=== PATIENT | male | born 1940 | race African-American/Black ===

== ENCOUNTER → 2019-05-01 06:30 | Outpatient (CLI) | payer MEDICARE, OTHER, SELFPAY ==
--- NOTE | 2019-05-02 16:11 | STRESSREP ---
Stress Test Report Date: 05/01/2019 Procedure: Pharmacologic stress nuclear imaging study Indications: Atrial flutter Consent: Per the patient Procedure: The patient underwent pharmacologic (Regadenoson) evaluation with a peak heart rate of 80 beats per minute (57 %predicted maximal heart rate) and a peak blood pressure of 168/70 mmHg. The baseline ECG demonstrated normal sinus rhythm, no significant ST-T changes. EKG during lexiscan infusion revealed no significant ischemic change. EKG post infusion revealed no significant ischemic changes [There were no cardiac dysrhythmias pretest, during pharmacologic infusion, or recovery]. [There was no complaint of chest discomfort during pharmacologic infusion or recovery]. The examination was discontinued secondary to completion of protocol. Impression: 1. Lexiscan stress test test is negative for Lexiscan infusion induced EKG changes of ischemia. 2. Lexiscan stress test test is negative for Lexiscan infusion induced chest pain. 3. Results of the nuclear portion of the test is as below Myocardial perfusion imaging study: Technique: The patient was injected with 11.3 millicuries of technetium 99m Cardiolite and subsequently rest SPECT Cardiolite nuclear imaging was obtained in the horizontal long, vertical long, and short axis views. The patient underwent pharmacologic (Regadenoson) evaluation. Please see above for details. The patient was injected with 28 millicuries of technetium 99m Cardiolite and subsequently stress SPECT Cardiolite nuclear imaging was obtained in the horizontal long, vertical long, and short axis views. A gated Cardiolite study at peak stress was obtained. Interpretation: Rest and stress SPECT Cardiolite nuclear imaging status post realignment, normalization, and attenuation correction demonstrate increased radioisotope uptake on the rest and stress images prior to attenuation correction which improves with attenuation correction suggestive of diaphragmatic attenuation artifact. There is no evidence of significant ischemia or infarction. Gated images reveal no significant regional wall motion abnormalities. The reported LVEF is 60 %. Impression: 1. There is no evidence of significant ischemia or infarction. 2. Estimated ejection fraction is 60%. This note was generated with Xcedexation software. It may contain incorrect words, spelling, and punctuation that were not noted in checking the note before signing.
== END ==
PROVIDERS: Family Provider Surgery Vascular Surgery; PCP Surgery Vascular Surgery; Referring Provider Nurse Practitioner Primary Care; Visit Provider Nurse Practitioner Primary Care
DX: I48.3 Typical atrial flutter (principal); I73.9 Peripheral vascular disease, unspecified; R06.02 Shortness of breath; Z98.61 Coronary angioplasty status
CPT/HCPCS: 78452; 93017; A9500; A4216; J2785

== ENCOUNTER 2019-05-05 21:19 | Emergency (ER) | payer MEDICARE, OTHER, SELFPAY ==
[2019-05-02 09:40] VITALS: BMI 25.8
[2019-05-05 21:26] VITALS: BP 151/81; PULSE 84; RESP 17; TEMP 36.8; O2SAT 95; BMI 21.8
--- NOTE | 2019-05-05 21:33 | EKG12_ITS ---
Test Reason : Blood Pressure : / mmHG Vent. Rate : 078 BPM Atrial Rate : 078 BPM P-R Int : 174 ms QRS Dur : 118 ms QT Int : 372 ms P-R-T Axes : -18 -39 058 degrees QTc Int : 424 ms Normal sinus rhythm Left axis deviation Inferior infarct , age undetermined Abnormal ECG Confirmed by JAYJAY HAUSER, MARSHA ([id number]), market editor BALBIR HUNG ([id number]) on 05/09/2019 1:39:21 PM Referred By: Jannie Yañez Confirmed By:MARSHA RO MD
[2019-05-05 21:39] VITALS: BP 125/70; BP 136/69; BP 145/67; PULSE 82; PULSE 84
--- NOTE | 2019-05-05 21:39 | ED.VIS.GEN ---
History of Present Illness Chief Complaint: Dizziness Detail of Chief Complaint: Dizziness is defined as lightheadedness Informant: Patient, Family, Significant Other Onset: Today Context: Sudden Onset Timing: Intermittent Quality: Lightheaded Location: Home Current Severity: - - Resolved Maximum Severity: Moderate Worsened by: Upright position Relieved by: Nothing Associated Symptoms: Generalized malaise Narrative: Is an elderly male who was eating dinner with family. He estuardo from the dinner table to use the restroom. He states he did not feel.. He reports lightheadedness started before he used the restroom. He states he did not strain to have a bowel movement. He did not note black or maroon stool. He denied vertiginous symptoms. He denied ocular, visual or auditory symptoms. He specifically denied diplopia. He denies trouble with speech or swallowing. He denied paresthesia, anesthesia motor weakness. He denied chest discomfort. Presently has no symptoms Prior similar symptoms: No Recent Illness/Hospitalization: No - Past Medical History (1) Atherosclerosis of lower extremity with gangrene Status: Acute (2) Coronary artery disease Status: Acute (3) Gangrene of toe of right foot Status: Acute Past Medical History - Allergies and Home Meds Allergies/Adverse Reactions: Allergies naproxen [From Aleve] Allergy (Verified 05/05/19 21:32) Angioedema Primary Care Physician: Thomas Kelley MD [Primary Care Provider] - Prior records reviewed: Yes Surgical History: - - Stents x4 Lives: Spouse/ Significant Other Smoking Status: Never smoker Alcohol: None Drugs: None Review of Systems General: Reports: Malaise. Denies: Chills, Fever, Subjective, Sweats, Weight loss, - Eyes: Denies: Visual changes - bilaterally, Blurred Vision - bilaterally, Diplopia ENT: Reports: Bilateral ear pain. Denies: Rhinorrhea, Sore throat Cardiovascular: Denies: Chest pain, Palpitations Respiratory: Denies: Dyspnea, Cough, Dyspnea on exertion Gastrointestinal: Denies: Abdominal pain, Nausea, Vomiting, Diarrhea, Melena, Hematochezia Genitourinary: Denies: Dysuria, Hematuria, Frequency Musculoskeletal: Denies: Myalgias, Arthralgias, Neck pain, Back pain, Swelling, Extremity Pain Skin: Denies: Rash, Wounds Neurological: Denies: Headache, Weakness, Numbness Hematologic: Denies: Easy bruising, Easy bleeding Physical Exam Vital Signs/Narrative: Vital Signs Temp Pulse Resp BP Pulse Ox 05/05/19 21:26 98.3 F 84 17 151/81 H 95 Inital Vital Signs reviewed: Yes General: Well nourished, Well developed, No Acute Distress Head: Normocephalic, Atraumatic Eyes: Perrl, EOMI ENT: Moist mucous membranes, No rhinorrhea Neck: Supple, Nontender Cardiovascular: Regular rate, Regular rhythm, No murmurs, Normal S1, Normal S2 Respiratory: No distress, CTA bilaterally, Chest nontender Abdomen: Soft, Nontender, Nondistended, Normal bowel sounds, No masses Back: Nontender, Normal Inspection Extremities: Nontender, No edema, - - And has gangrene toes right foot. He has no palpable pulses. He does report pain. Skin: Normal color, No rash. Negative for: Cyanosis, Diaphoresis, Jaundice Neurological: Alert, Oriented x3, Cranial nerves II-XII grossly intact, Normal Strength, Normal Sensation, Normal DTR, - - Romberg with eyes open and closes normal. Cerebellar testing is normal. Psychological: Normal affect, Normal Mood Diagnostic/Tx/Re-eval Laboratory Results 05/05/19 21:46 WBC 10.1 RBC 3.33 L Hgb 11.2 L Hct 33.6 L MCV 100.9 H MCH 33.6 H MCHC 33.3 RDW Std Deviation 49.4 H RDW Coeff of John 13.3 Plt Count 211 MPV 8.9 Patient has mild macrocytic anemia. Family states he has a history of anemia. - EKG Initial EKG Interpretation: Sinus Rhythm - Sinus rhythm rate of 78. MA interval 174 ms. QRS duration 118 ms which is prolonged. QT T duration is 372 ms. [place] to left. 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 - Medical Decision Making KG was obtained per nurse protocol. EKG was unremarkable for ischemic changes. Orthostatic vital signs were normal. CBC was obtained to assess for anemia. Orthostatic vital signs normal. H&H unchanged. Since patient has pain secondary to peripheral artery disease and inhibits/causes sleeping problems will prescribe opiate analgesia to be taken at night for pain. ED Disposition - Plan for ED Patient: Disposition: Home or Assisted Living Diagnosis: Episodic lightheadedness, Chronic anemia, Peripheral arterial disease Instructions: DIZZINESS, Unk Cause Prescriptions: Hydrocodone Bitart/Apap 5-325 [[place] 5MG-325MG] 1 tab PO Q6H PRN PRN 3 Days #10 tab PRN Reason: Pain Prescription Printed Referrals: Thomas Kelley MD [Primary Care Provider] - Keep Toby appointment
[2019-05-05 21:58] LABS: Hematocrit 33.6 % (40-54); Hemoglobin 11.2 g/dL (13.0-16.5); Mean Corp Hgb Conc 33.3 g/dL (32-36); Mean Corpuscular Hgb 33.6 pg (27.0-32.0); Mean Corpuscular Volume 100.9 fL (80-94); Mean Platelet Vol. 8.9 fl (6.2-12.0); Platelet Count 211 K/mm3 (150-450); RBC Distribution Width CV 13.3 % (11.6-14.6); RBC Distribution Width SD 49.4 fl (35.1-43.9); Red Blood Count 3.33 M/mm3 (4.6-6.2); White Blood Count 10.1 K/mm3 (4.4-11.0)
[2019-05-05 23:08] VITALS: BP 143/79
== END 2019-05-05 23:09 | disposition home or self-care (01) ==
PROVIDERS: Emergency Provider Emergency Medicine; Family Provider Surgery Vascular Surgery; PCP Surgery Vascular Surgery
DX: R42 Dizziness and giddiness (principal); D64.9 Anemia, unspecified; I70.269 Atherosclerosis of native arteries of extremities with gangrene, unspecified extremity; H92.03 Otalgia, bilateral; I25.10 Atherosclerotic heart disease of native coronary artery without angina pectoris; Z95.5 Presence of coronary angioplasty implant and graft
CPT/HCPCS: 85027; 93005; 99283

== ENCOUNTER → 2019-05-09 10:48 | Outpatient (CLI) | payer MEDICARE, OTHER, SELFPAY ==
[2019-05-09 10:48] VITALS: BMI 21.8
[2019-05-09 11:58] LABS: Anion Gap 3 (5-15); BUN 17 mg/dL (7-18); BUN/Creat Ratio 16.2 RATIO (10-20); Calcium,Total 9.5 mg/dL (8.5-10.1); Chloride 105 mmol/L (98-107); Creatinine, Serum 1.05 mg/dL (0.70-1.30); EST Glomerular Filtration Rate 72 mL/min (>60); Est Glom Filt Rate - Afr Amer 87 mL/min (>60); Glucose 98 mg/dL (74-106); Potassium 4.1 mmol/L (3.5-5.1); Sodium Level 138 mmol/L (136-145)
--- NOTE | 2019-05-09 12:37 | CON.PCM_ITS ---
Problem List (1) Gangrene of toe of right foot Status: Acute Reason for Consult: gangrene History of Present Illness: The patient is a 78 year old M with severe PAD, presented to wound care with several months of R toe gangrene, pain, redness, swelling. Lives in [facility], [facility] for a living. No fever, no n/v/d. R 1st toe with dry gangrene. R 3rd toe with inflammation. No pain at rest. Came to wound center, xray done, toe with foul odor and concern for infection. Cxs sent, started on flagyl. Toe doing better in terms of odor. Full ROS performed and neg except as noted above. - Medical History Surgical History: reviewed includes PAD Allergies/Adverse Reactions: Allergies naproxen [From Aleve] Allergy (Verified 05/05/19 21:32) Angioedema Home Medications: Ambulatory Orders Medication Instructions Recorded Hydrocodone Bitart/Apap 5-325 1 tab PO Q6H PRN PRN 3 Days #10 tab 05/05/19 [[place] 5MG-325MG] - Social History Tobacco Use: non-smoker Alcohol Use: occasionally Drug Use: marijuana Body Mass Index (BMI) 21.8 Laboratory Tests Past 24 Hrs 05/09/19 10:55 Sodium 138 Potassium 4.1 Chloride 105 Carbon Dioxide 30.0 Anion Gap 3 L BUN 17 Creatinine 1.05 Est GFR (MDRD) Af Amer 87 Est GFR (MDRD) Non-Af 72 BUN/Creatinine Ratio 16.2 Glucose 98 Calcium 9.5 - Other Studies Radiology: [] reviewed Other Studies: [] Route of nutrition/ use of supplements: [] Nutritional Intake: [] IV Site: [] Phipps Catheter: [] - Physical Exam General: Alert, Oriented x3, Cooperative, No apparent distress HEENT: Atraumatic, PERRLA, EOMI Neck: Supple, No Nodes Lungs: Clear to auscultation, Normal air movement Cardiovascular: Regular rate, Regular Rhythm Abdomen: Soft, Non Tender, Non-Distended Extremities: No edema, Diminished Peripheral Pulses Skin: - - R 1st toe gangrene, 3rd toe swelling, redness. Musculoskeletal: No Tenderness to Palpation of Joints or Extremities Neurological: Cranial nerves II-XII grossly intact - Assessment/Plan Antibiotics: [] Assessment/Plan: [] R 3rd toe infection with R 1st toe dry gangrene - reviewed cxs, imaging. Will write for 2 week course of doxy/cipro/flagyl. Counseled re:need to avoid etoh while on flagyl. Check bmp now. Wrote rx. Discussed with Lucy Guadalupe. Return to clinic as needed, thank you for this referral.
== END ==
PROVIDERS: Family Provider Surgery Vascular Surgery; PCP Surgery Vascular Surgery; Referring Provider Internal Medicine Infectious Disease; Visit Provider Internal Medicine Infectious Disease
DX: I96 Gangrene, not elsewhere classified (principal)
CPT/HCPCS: 36415; 80048

== ENCOUNTER 2019-05-14 10:30 | Outpatient (RCR) | payer MEDICARE, OTHER, SELFPAY ==
[2019-05-02 09:40] VITALS: BP 137/65; PULSE 69; RESP 16; TEMP 37; BMI 25.8
--- NOTE | 2019-05-02 11:24 | RAD_ITS ---
STUDY: X-RAY - RIGHT FOOT CLINICAL: Male, 78 years old. Right foot pain, third toe ulcer, suspect osteomyelitis TECHNIQUE: 3 view(s) of the foot. COMPARISON: None. FINDINGS: There is a plantar calcaneal spur. Normal visualized subtalar, talonavicular, calcaneocuboid, tarsal and tarsometatarsal articulations. Normal metatarsi. There is degenerative arthrosis of the metatarsophalangeal joint of the hallux . Normal tibial and fibular sesamoid bones. Normal interphalangeal joint of the great toe. Normal phalanges of the great toe. Normal second through fifth metatarsophalangeal joints. Normal interphalangeal joints and phalanges of the lesser toes. There is loss of soft tissue density overlying the first distal phalanx with no fat plane/soft tissue adjacent to the tuft. There is soft tissue swelling of the third digit but no obvious bony destruction. Vascular calcifications are present. RAD/Foot min 3 Views IMPRESSION: 1. Suspected soft tissue erosion/ulcer of the distal first toe. No obvious aixa bony destruction. Recommend correlation with MRI or bone scan, if clinically appropriate, for evaluation of osteomyelitis. 2. Third toe soft tissue swelling without obvious bony destruction. Electronically Signed: Mark Deluna MD ([place]) at 17:15 EDT , Service support ,
--- NOTE | 2019-05-02 11:34 | RAD_ITS ---
STUDY: X-RAY RIGHT FOOT, FIRST and third TOE REASON FOR EXAM: Male, 78 years old. Ulcers of the first and third toes TECHNIQUE: 3 view(s) of the toe were obtained. COMPARISON: None. FINDINGS: Normal visualized metatarsus. Normal metatarsophalangeal (M.T.P) joint. Normal interphalangeal joints. There is loss of soft tissue density overlying the first distal phalanx with no fat plane/soft tissue adjacent to the tuft. There is soft tissue swelling of the third digit but no obvious bony destruction. RAD/Toe(s) Min 2 Views IMPRESSION: 1. Suspected soft tissue erosion/ulcer of the distal first toe (phalanx may be exposed). No obvious aixa bony destruction. Recommend correlation with MRI or bone scan, if clinically appropriate, for evaluation of osteomyelitis. 2. Third toe soft tissue swelling without obvious bony destruction. Electronically Signed: Mark Deluna MD ([place]) at 17:17 EDT , Service support ,
--- NOTE | 2019-05-02 11:54 | HP.PCM_ITS ---
(1) Gangrene of toe of right foot Status: Acute Current Visit: Yes Code(s): I96 - Gangrene, not elsewhere classified (2) Nonhealing nonsurgical wound Status: Acute Current Visit: Yes Code(s): T14.8XXA - Other injury of unspecified body region, initial encounter (3) Atherosclerosis of lower extremity with gangrene Status: Acute Current Visit: Yes Code(s): I70.269 - Atherosclerosis of [place] arteries of extremities with gangrene, unspecified extremity (4) Coronary artery disease Status: Acute Current Visit: Yes Code(s): I25.10 - Atherosclerotic heart disease of [place] coronary artery without angina pectoris History of Present Illness Date of Service: 05/02/19 Chief Complaint: Follow-up on some black toes History of Wound: 78-year-old black male from the [facility] noticed a couple weeks ago that his toes were discoloring has history of coronary artery disease and had an ME with 4 stents is on Eliquis for his uncontrolled A. fib hypertension and coronary artery disease he is also had an attempted stent to the right leg unsuccessful by a vascular surgeon on April 16 he does have a follow-up appointment with him next week. Patient had vascular studies done with the vascular surgeon no results to us yet we will attempt to get copies. Patient states he has good feeling in his legs and feet and can move all toes. Relatives that are nurses felt that the vascular surgeon would only be interested in his reasons why he is doing this but not with the wounds on his feet and that is how they got referred to the wound center. Past Medical History Past Medical History: Gangrene to the right great toe tip. Open wound to the third toe dorsal to the bone. Pretension, CAD, myocardial infarct borderline diabetes. Blood thinners Eliquis Surgical History: - - Stents x4 Lives: Spouse/ Significant Other Smoking Status: Former smoker Review of Systems Constitutional: Denies: Chills, Fever Eyes: Denies: Blurred vision, Drainage, Pain HEENT: Denies: Difficulty Hearing, Difficulty Swallowing, Sore Throat, Visual Changes Cardiovascular: Denies: Chest Pain, Palpitations, Syncope Respiratory: Denies: Cough, Shortness of Breath Gastrointestinal: Denies: Abdominal Pain, Nausea, Vomiting Genitourinary: Denies: Dysuria, Frequency Musculoskeletal: Denies: Joint Pain, Muscle pain Skin: Denies: Jaundice, Rash Neurological: Denies: Balance problems, Change in Speech, Difficulty swallowing, Focal weakness Psychiatric: Denies: Anxiety, Depression Endocrine: Denies: Change in Body Habitus Hematologic/ Lymphatic: Denies: Adenopathy - Physical Exam Vital Signs Temp Pulse Resp BP 98.6 F 69 16 137/65 H 05/02/19 09:40 05/02/19 09:40 05/02/19 09:40 05/02/19 09:40 General: Oriented x3, Cooperative, Well developed HEENT: Atraumatic, PERRLA Oral: Moist Mucosa Neck: Supple, No JVD Lungs: Clear to auscultation, Normal air movement Cardiovascular: Regular rate, Regular Rhythm Abdomen: Bowel Sounds Present, Soft, Non Tender, No Hepato-splenomegaly Extremities: No clubbing, No edema Skin: Ulcer/ Wound - Black tiptoed to the right great toe and open wound with slough on the third dorsal toe Wound Measurements and Assessment WC - Nurse 1 - General Ulcer Measurement Start: 05/02/19 09:40 Freq: Status: Active Protocol: Activity Type Activity Date Activity User E-Sign Co-Sign Detail Recorded Client Recorded Date Recorded By Document 05/02/19 09:40 [facility] [id number] 05/02/19 09:59 [facility] 05/02/19 09:40 Wound Center Nurse 1 [Ulcer Assessment] #2- R 3RD TOE -Combined with other wound No -Current Size (cm) - Length 1.1 -Current Size (cm) - Width 1.7 -Current Size (cm) - Depth 0.1 -Total Square Cm 1.87 -Date of Last Picture (Recall this 05/02/19 field) -Photo Taken Yes -Epithelialization None Present -Tunneling No -Undermining/Tunneling No -Circular Undermining No -Exudate Amt None Present -Wound Margin Distinct, Outline Attached -Granulation Amt None Present (0 %) -Slough/Fibrin Yes -Necrosis Amt Large (67-100%) -Necrotic Tissue Type Eschar -Texture (Amie-wound Skin Appearance) Assessed -Moisture (Amie-wound Skin Appearance Assessed ) -Color (Amie-wound Skin Appearance) Assessed -Temperature (Amie-wound Skin No Abnormality Appearance) (Pt Warm) -Tenderness on Palpation (Amie-wound No Skin Appearance) -Ulcer Cleansing SOAP AND WATER -Foul Odor after Cleansing No -Anesthetic Used 4% Lidocaine Solution #1- R GREAT TOE -Combined with other wound No -Current Size (cm) - Length 6.2 -Current Size (cm) - Width 3.5 -Current Size (cm) - Depth 0.1 -Total Square Cm 21.70 -Date of Last Picture (Recall this 05/02/19 field) -Photo Taken Yes -Epithelialization None Present -Tunneling No -Undermining/Tunneling No -Circular Undermining No -Exudate Amt Small -Exudate Type Serous -Wound Margin Distinct, Outline Attached -Granulation Amt None Present (0 %) -Slough/Fibrin Yes -Necrosis Amt Large (67-100%) -Necrotic Tissue Type Eschar -Texture (Amie-wound Skin Appearance) Assessed -Moisture (Amie-wound Skin Appearance Assessed ) -Color (Amie-wound Skin Appearance) Assessed -Temperature (Amie-wound Skin No Abnormality Appearance) (Pt Warm) -Tenderness on Palpation (Amie-wound Yes Skin Appearance) -Ulcer Cleansing SOAP AND WATER -Foul Odor after Cleansing No -Anesthetic Used 4% Lidocaine Solution [Edema Assessment] -Lower Limb Edema Present Yes -Right Calf (cm) 32.4 -Right Ankle (cm) 20.9 -Left Calf (cm) 31.8 -Left Ankle (cm) 21 WC - Nurse 2 - General Ulcer CM Notes Start: 05/02/19 09:40 Freq: Status: Active Protocol: Activity Type Activity Date Activity User E-Sign Co-Sign Detail Recorded Client Recorded Date Recorded By Document 05/02/19 10:23 MW [id number] 05/02/19 10:49 MW 05/02/19 10:23 Wound Center Nurse 2 [Procedure/Treatment] #2- R 3RD TOE -Time 10:24 -Correct Patient Yes -Correct Side, Site, Position Yes -Correct Procedure Yes -Procedure Performed Yes -Type of Procedure Debridement -Clinical Debridement Subcutaneous -Post Debridement Size (cm) - Length 1.0 -Post Debridement Size (cm) - Width 1.0 -Post Debridement Size (cm) - Depth 0.3 -Total Square Cm 1.00 -Wound/Ulcer Outcome Not Healed -Ulcer Cleansing Rinsed/ Irrigated with Saline -Foul Odor after Cleansing No -Bioengineered Tissue No -Bleeding Controlled with Pressure -Offloading No -Treatment Response Procedure Tolerated Well #1- R GREAT TOE -Time 10:25 -Correct Patient Yes -Correct Side, Site, Position Yes -Correct Procedure Yes -Procedure Performed Yes -Type of Procedure Debridement -Clinical Debridement Subcutaneous -Post Debridement Size (cm) - Length 7.0 -Post Debridement Size (cm) - Width 4.0 -Post Debridement Size (cm) - Depth 0.1 -Total Square Cm 28.00 -Wound/Ulcer Outcome Not Healed -Ulcer Cleansing Rinsed/ Irrigated with Saline -Foul Odor after Cleansing No -Bioengineered Tissue No -Bleeding Controlled with Pressure -Offloading No -Treatment Response Procedure Tolerated Well [See Physician Procedure note for Specifics] Pain Scale: 0-10 Numeric [Pain] -Is Patient Pain Free? Yes Musculoskeletal: No Tenderness to Palpation of Joints or Extremities Lymphatic: No Cervical, Supraclavicular, or Inguinal Adenopathy Neurological: Cranial nerves II-XII grossly intact, Neuro grossly intact Psych/Mental Status: Normal Affect, Appropriate Debridement Note Post-Debridement Measurements/Treatment WC - Nurse 2 - General Ulcer CM Notes Start: 05/02/19 09:40 Freq: Status: Active Protocol: Activity Type Activity Date Activity User E-Sign Co-Sign Detail Recorded Client Recorded Date Recorded By Document 05/02/19 10:23 MW [id number] 05/02/19 10:49 MW 05/02/19 10:23 Wound Center Nurse 2 #2- R 3RD TOE -Time 10:24 -Correct Patient Yes -Correct Side, Site, Position Yes -Correct Procedure Yes -Procedure Performed Yes -Type of Procedure Debridement -Clinical Debridement Subcutaneous -Post Debridement Size (cm) - Length 1.0 -Post Debridement Size (cm) - Width 1.0 -Post Debridement Size (cm) - Depth 0.3 -Total Square Cm 1.00 -Wound/Ulcer Outcome Not Healed -Ulcer Cleansing Rinsed/ Irrigated with Saline -Foul Odor after Cleansing No -Bioengineered Tissue No -Bleeding Controlled with Pressure -Offloading No -Treatment Response Procedure Tolerated Well #1- R GREAT TOE -Time 10:25 -Correct Patient Yes -Correct Side, Site, Position Yes -Correct Procedure Yes -Procedure Performed Yes -Type of Procedure Debridement -Clinical Debridement Subcutaneous -Post Debridement Size (cm) - Length 7.0 -Post Debridement Size (cm) - Width 4.0 -Post Debridement Size (cm) - Depth 0.1 -Total Square Cm 28.00 -Wound/Ulcer Outcome Not Healed -Ulcer Cleansing Rinsed/ Irrigated with Saline -Foul Odor after Cleansing No -Bioengineered Tissue No -Bleeding Controlled with Pressure -Offloading No -Treatment Response Procedure Tolerated Well Pain Scale: 0-10 Numeric Is Patient Pain Free? Yes Wound debrided: Right great toe Type of Debridement: Excisional debridement Anesthesia Used: 5% Lidocaine Gel Depth: to bone Percentage of wound debrided: 100 Instrument Used: 7mm curette, - - Nippers and scissors Tissue Removed: Devitalized tissue necrotic tissue extremely odiferous Severity: Necrosis of Muscle - Necrotic skin smells Amount of bleeding with debridement: Mild Bleeding Controlled with: Compression and gauze Patient tolerated procedure well - Additional Wound Wound debrided: Right third toe dorsal side Laterality: Right Type of Debridement: Excisional debridement Anesthesia Used: 5% Lidocaine Gel Depth: Down to and including healthy tissue, in the subcutaneous layer, to bone Percentage of wound debrided: 100 Instrument Used: 7mm curette Tissue Removed: Necrotic tissue devitalized tissue Severity: Fat Layer Exposed Amount of bleeding with debridement: None Bleeding Controlled with: Pressure Patient tolerated procedure: Patient tolerated procedure well Assessment/Plan Aerobic and anaerobic cultures of the third toe and great toe taken Foot x-ray and toes x-ray ordered Active Problems Gangrene of toe of right foot (Acute) Nonhealing nonsurgical wound (Acute) Atherosclerosis of lower extremity with gangrene (Acute) Coronary artery disease (Acute) Assessment: Gangrene tip of the right great toe 50%. Right third toe open nonhealing wound infected. CAD and atherosclerosis with gangrene. Long-term blood thinner use Plan: Wash leg with Hibiclens or antibacterial soap such as Dial. Apply povidone iodine to the right great toe: It air dry and cover. Right third toe Santyl to the open wound cover with Adaptic and gauze. Follow-up in 1 week. We will contact them with results of testing. Keep appointment with vascular surgeon will continue to attempt to get copies of vascular studies.
[2019-05-09 09:52] VITALS: BP 156/73; PULSE 76; RESP 20; TEMP 37; BMI 25.8
--- NOTE | 2019-05-09 12:38 | PCM.WC.PN ---
(1) Gangrene of toe of right foot Status: Acute Current Visit: No Code(s): I96 - Gangrene, not elsewhere classified (2) Nonhealing nonsurgical wound Status: Acute Current Visit: No Code(s): T14.8XXA - Other injury of unspecified body region, initial encounter (3) Atherosclerosis of lower extremity with gangrene Status: Acute Current Visit: No Code(s): I70.269 - Atherosclerosis of [place] arteries of extremities with gangrene, unspecified extremity (4) Coronary artery disease Status: Acute Current Visit: No Code(s): I25.10 - Atherosclerotic heart disease of [place] coronary artery without angina pectoris Type of Wound Date of Service: 05/09/19 Chief Complaint: Follow-up on some black toes History of Wound: 78-year-old black male from the [facility] noticed a couple weeks ago that his toes were discoloring has history of coronary artery disease and had an [place] with 4 stents is on Eliquis for his uncontrolled A. fib hypertension and coronary artery disease he is also had an attempted stent to the right leg unsuccessful by a vascular surgeon on April 16 he does have a follow-up appointment with him next week. Patient had vascular studies done with the vascular surgeon no results to us yet we will attempt to get copies. Patient states he has good feeling in his legs and feet and can move all toes. Relatives that are nurses felt that the vascular surgeon would only be interested in his reasons why he is doing this but not with the wounds on his feet and that is how they got referred to the wound center. Progress of Wound: Today is the first time we have seen it since last visit and the right great toe is completely black and the right third toe dorsal side still has a hole in the top with easily now to get the slough out. Using Santyl as described and I have probed down iodine to the right great toe daily. 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 The infectious disease doctor started 2 antibiotics and started him on a higher dose of metronidazole I had him on 250 he increased it to 500. She was also seen by his vascular surgeon this past week and he basically said the surgery would would be at least 8 hours long and he is not guarantee that he be able to get through the arteries from the heart down into the legs because of his calcification issues. He suggested to leave it alone and to continue with wound care and pain management until he cannot stand it any longer amputation is the only answer in the end. 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 We discussed that it is a minimum of 6 months with this foot to get back to normal and they are not willing to wait that long. We will get things started and get antibiotics going continue with wound care until they decide to leave. They will then follow-up with their regular doctor with the wound care that we are giving and follow-up with pain management down there. Patient and are agreeable to plan. Infectious disease agrees MRI is not necessary at this point he looked at the x-rays and he thinks that oral antibiotics are okay at this point and since he is not a candidate for surgery there is not much else we can do for now. - Physical Exam Vital Signs Temp Pulse Resp BP 98.6 F 76 20 H 156/73 H 05/09/19 09:52 05/09/19 09:52 05/09/19 09:52 05/09/19 09:52 General: Oriented x3, Cooperative, Well developed HEENT: Atraumatic, PERRLA Oral: Moist Mucosa Neck: Supple, No JVD Lungs: Clear to auscultation, Normal air movement Cardiovascular: Regular rate, Regular Rhythm Abdomen: Bowel Sounds Present, Soft, Non Tender, No Hepato-splenomegaly Extremities: No clubbing, No edema Skin: Ulcer/ Wound - Blackened right great toe and open ulcer right third toe Wound Measurements and Assessment WC - Nurse 1 - General Ulcer Measurement Start: 05/02/19 09:40 Freq: Status: Active Protocol: Activity Type Activity Date Activity User E-Sign Co-Sign Detail Recorded Client Recorded Date Recorded By Document 05/09/19 09:52 AN [id number] 05/09/19 10:00 AN 05/09/19 09:52 Wound Center Nurse 1 [Ulcer Assessment] #2- R 3RD TOE -Current Size (cm) - Length 0.8 -Current Size (cm) - Width 0.4 -Current Size (cm) - Depth 0.2 -Total Square Cm 0.32 -Photo Taken No -Exudate Amt Medium -Exudate Type Yellow/Green -Wound Margin Flat & Intact -Granulation Amt None Present (0 %) -Slough/Fibrin Yes -Necrosis Amt Large (67-100%) -Necrotic Tissue Type Adherent Slough -Structure Exposed Fat Layer Exposed -Texture (Amie-wound Skin Appearance) Assessed -Moisture (Amie-wound Skin Appearance Assessed ) -Color (Amie-wound Skin Appearance) Assessed -Temperature (Amie-wound Skin No Abnormality Appearance) (Pt Warm) -Tenderness on Palpation (Amie-wound Yes Skin Appearance) -Ulcer Cleansing Rinsed/ Irrigated with Saline -Foul Odor after Cleansing No -Anesthetic Used 4% Lidocaine Solution #1- R GREAT TOE -Current Size (cm) - Length 7 -Current Size (cm) - Width 7 -Current Size (cm) - Depth 0.1 -Total Square Cm 49 -Classification - Thickness Unclassifiable (Eschar Covered ) -Exudate Amt None Present -Wound Margin Indistinct, Non -Visible -Structure Exposed N/A -Texture (Amie-wound Skin Appearance) Assessed -Moisture (Amie-wound Skin Appearance Assessed ) -Color (Amie-wound Skin Appearance) Assessed -Temperature (Amie-wound Skin No Abnormality Appearance) (Pt Warm) -Tenderness on Palpation (Amie-wound No Skin Appearance) -Ulcer Cleansing Rinsed/ Irrigated with Saline -Foul Odor after Cleansing No WC - Nurse 2 - General Ulcer CM Notes Start: 05/02/19 09:40 Freq: Status: Active Protocol: Activity Type Activity Date Activity User E-Sign Co-Sign Detail Recorded Client Recorded Date Recorded By Document 05/09/19 10:08 MW [id number] 05/09/19 10:22 MW 05/09/19 10:08 Wound Center Nurse 2 [Procedure/Treatment] #2- R 3RD TOE -Time 10:09 -Correct Patient Yes -Correct Side, Site, Position Yes -Correct Procedure Yes -Procedure Performed Yes -Type of Procedure Debridement -Clinical Debridement Subcutaneous -Post Debridement Size (cm) - Length 0.5 -Post Debridement Size (cm) - Width 0.5 -Post Debridement Size (cm) - Depth 0.3 -Total Square Cm 0.25 -Wound/Ulcer Outcome Not Healed -Ulcer Cleansing Rinsed/ Irrigated with Saline -Foul Odor after Cleansing No -Bioengineered Tissue No -Bleeding Controlled with Pressure -Offloading No -Treatment Response Procedure Tolerated Well #1- R GREAT TOE -Time 10:17 -Correct Patient Yes -Correct Side, Site, Position Yes -Correct Procedure Yes -Procedure Performed No -Post Debridement Size (cm) - Length 7.0 -Post Debridement Size (cm) - Width 3.5 -Post Debridement Size (cm) - Depth 0.1 -Total Square Cm 24.50 -Ulcer Cleansing Not Cleansed -Foul Odor after Cleansing No -Bioengineered Tissue No -Bleeding Controlled with NA -Offloading No -Treatment Response Procedure Tolerated Well [See Physician Procedure note for Specifics] Pain Scale: 0-10 Numeric [Pain] -Is Patient Pain Free? Yes Musculoskeletal: No Tenderness to Palpation of Joints or Extremities Lymphatic: No Cervical, Supraclavicular, or Inguinal Adenopathy Neurological: Cranial nerves II-XII grossly intact, Neuro grossly intact Psych/Mental Status: Normal Affect, Appropriate Debridement Note Post-Debridement Measurements/Treatment WC - Nurse 2 - General Ulcer CM Notes Start: 05/02/19 09:40 Freq: Status: Active Protocol: Activity Type Activity Date Activity User E-Sign Co-Sign Detail Recorded Client Recorded Date Recorded By Document 05/02/19 10:23 MW [id number] 05/02/19 10:49 MW Document 05/09/19 10:08 MW [id number] 05/09/19 10:22 MW 05/02/19 05/09/19 10:23 10:08 Wound Center Nurse 2 #2- R 3RD TOE -Time 10:24 10:09 -Correct Patient Yes Yes -Correct Side, Site, Position Yes Yes -Correct Procedure Yes Yes -Procedure Performed Yes Yes -Type of Procedure Debridement Debridement -Clinical Debridement Subcutaneous Subcutaneous -Post Debridement Size (cm) - Length 1.0 0.5 -Post Debridement Size (cm) - Width 1.0 0.5 -Post Debridement Size (cm) - Depth 0.3 0.3 -Total Square Cm 1.00 0.25 -Wound/Ulcer Outcome Not Healed Not Healed -Ulcer Cleansing Rinsed/ Rinsed/ Irrigated with Irrigated with Saline Saline -Foul Odor after Cleansing No No -Bioengineered Tissue No No -Bleeding Controlled with Pressure Pressure -Offloading No No -Treatment Response Procedure Procedure Tolerated Well Tolerated Well #1- R GREAT TOE -Time 10:25 10:17 -Correct Patient Yes Yes -Correct Side, Site, Position Yes Yes -Correct Procedure Yes Yes -Procedure Performed Yes No -Type of Procedure Debridement -Clinical Debridement Subcutaneous -Post Debridement Size (cm) - Length 7.0 7.0 -Post Debridement Size (cm) - Width 4.0 3.5 -Post Debridement Size (cm) - Depth 0.1 0.1 -Total Square Cm 28.00 24.50 -Wound/Ulcer Outcome Not Healed -Ulcer Cleansing Rinsed/ Not Cleansed Irrigated with Saline -Foul Odor after Cleansing No No -Bioengineered Tissue No No -Bleeding Controlled with Pressure NA -Offloading No No -Treatment Response Procedure Procedure Tolerated Well Tolerated Well Pain Scale: 0-10 Numeric Is Patient Pain Free? Yes Yes Wound debrided: Right third toe Type of Debridement: Excisional debridement Anesthesia Used: 5% Lidocaine Gel Depth: Down to and including healthy tissue, in the subcutaneous layer, to bone Percentage of wound debrided: 100 Instrument Used: 3mm curette Tissue Removed: Slough and fibrin Amount of bleeding with debridement: Mild Bleeding Controlled with: Compression and gauze Patient tolerated procedure well Assessment/Plan Clinical Impression(s) from Imaging Studies Foot X-Ray 05/02/19 11:24 IMPRESSION: 1. Suspected soft tissue erosion/ulcer of the distal first toe. No obvious aixa bony destruction. Recommend correlation with MRI or bone scan, if clinically appropriate, for evaluation of osteomyelitis. 2. Third toe soft tissue swelling without obvious bony destruction. Electronically Signed: Mark Deluna MD ([place]) at 17:15 EDT , Service support , Toe X-Ray 05/02/19 11:34 IMPRESSION: 1. Suspected soft tissue erosion/ulcer of the distal first toe (phalanx may be exposed). No obvious aixa bony destruction. Recommend correlation with MRI or bone scan, if clinically appropriate, for evaluation of osteomyelitis. 2. Third toe soft tissue swelling without obvious bony destruction. Electronically Signed: Mark Deluna MD ([place]) at 17:17 EDT , Service support , Assessment: Gangrene tip of the right great toe 50%. Right third toe open nonhealing infected. CAD and atherosclerosis with gangrene. Long-term blood thinner use. MRSA Plan: Wash leg with Hibiclens or antibacterial soap such as Dial. Apply povidone iodine to the right great toe: It air dry and cover. Right third toe Santyl to the open wound cover with Adaptic and gauze. Follow-up in 1 week. Start the ciprofloxacin 500 twice daily for 14 days. Start the doxycycline 100 mg twice daily for 14 days. Increase metronidazole to 500 mg 3 times a day for 14 days. Will up in 1 week with another provider. We will contact them with results of testing. Keep appointment with vascular surgeon will continue to attempt to get copies of vascular studies.
[2019-05-14 10:55] VITALS: BP 143/69; PULSE 72; RESP 18; TEMP 36.6; BMI 25.8
--- NOTE | 2019-05-14 12:47 | PN.PCM_ITS ---
(1) Skin ulcer of third toe of left foot with fat layer exposed Status: Chronic Current Visit: Yes Code(s): L97.522 - Non-pressure chronic ulcer of other part of left foot with fat layer exposed (2) Peripheral arterial disease Status: Chronic Current Visit: Yes Code(s): I73.9 - Peripheral vascular disease, unspecified (3) Gangrene of toe of right foot Status: Chronic Current Visit: Yes Code(s): I96 - Gangrene, not elsewhere classified Type of Wound Date of Service: 05/14/19 Chief Complaint: Follow-up on some black toes History of Wound: 78-year-old black male from the [facility] noticed a couple weeks ago that his toes were discoloring has history of coronary artery disease and had an [place] with 4 stents is on Eliquis for his uncontrolled A. fib hypertension and coronary artery disease he is also had an attempted stent to the right leg unsuccessful by a vascular surgeon on April 16 he does have a follow-up appointment with him next week. Patient had vascular studies done with the vascular surgeon no results to us yet we will attempt to get copies. Patient states he has good feeling in his legs and feet and can move all toes. Relatives that are nurses felt that the vascular surgeon would only be interested in his reasons why he is doing this but not with the wounds on his feet and that is how they got referred to the wound center. Progress of Wound: Mr. Ling is being managed for right toe ulcers with dry gangrene of his right great toe. Right third toe probes to bone and he is currently on antibiotics per ID recommendation. No new concerns at this time. They have been applying santyl to the ulcer and it appears to be improving. - Physical Exam Vital Signs Temp Pulse Resp BP 97.8 F 72 18 143/69 H 05/14/19 10:55 05/14/19 10:55 05/14/19 10:55 05/14/19 10:55 General: Alert, Oriented x3, Cooperative, No apparent distress HEENT: Atraumatic, Normocephalic Oral: Moist Mucosa Neck: Supple Lungs: Normal air movement Extremities: No cyanosis Skin: Ulcer/ Wound Wound Measurements and Assessment WC - Nurse 1 - General Ulcer Measurement Start: 05/02/19 09:40 Freq: Status: Active Protocol: Activity Type Activity Date Activity User E-Sign Co-Sign Detail Recorded Client Recorded Date Recorded By Document 05/14/19 10:55 RB [id number] 05/14/19 11:00 RB 05/14/19 10:55 Wound Center Nurse 1 [Ulcer Assessment] #2- R 3RD TOE -Combined with other wound No -Current Size (cm) - Length 0.5 -Current Size (cm) - Width 0.7 -Current Size (cm) - Depth 0.2 -Total Square Cm 0.35 -Tunneling No -Undermining/Tunneling No -Circular Undermining No -Exudate Amt Small -Exudate Type Serosanguineous -Wound Margin Distinct, Outline Attached -Granulation Amt Small (1-33%) -Granulation Quality [place] -Slough/Fibrin Yes -Necrosis Amt Medium (34-66%) -Necrotic Tissue Type Adherent Slough -Structure Exposed N/A -Texture (Amie-wound Skin Appearance) Assessed -Moisture (Amie-wound Skin Appearance Assessed ) -Color (Amie-wound Skin Appearance) Assessed -Temperature (Amie-wound Skin No Abnormality Appearance) (Pt Warm) -Tenderness on Palpation (Amie-wound No Skin Appearance) -Ulcer Cleansing Wound Cleanser -Foul Odor after Cleansing No -Anesthetic Used 4% Lidocaine Solution #1- R GREAT TOE -Combined with other wound No -Current Size (cm) - Length 7.5 -Current Size (cm) - Width 3.5 -Current Size (cm) - Depth 0.1 -Total Square Cm 26.25 -Tunneling No -Undermining/Tunneling No -Circular Undermining No -Exudate Amt None Present -Wound Margin Distinct, Outline Attached -Granulation Amt None Present (0 %) -Slough/Fibrin Yes -Necrosis Amt Large (67-100%) -Necrotic Tissue Type Eschar -Structure Exposed N/A -Texture (Amie-wound Skin Appearance) Assessed -Moisture (Amie-wound Skin Appearance Assessed,Dry/ ) Scaly -Color (Amie-wound Skin Appearance) Assessed -Temperature (Amie-wound Skin No Abnormality Appearance) (Pt Warm) -Tenderness on Palpation (Amie-wound No Skin Appearance) -Foul Odor after Cleansing No WC - Nurse 2 - General Ulcer CM Notes Start: 05/02/19 09:40 Freq: Status: Active Protocol: Activity Type Activity Date Activity User E-Sign Co-Sign Detail Recorded Client Recorded Date Recorded By Document 05/14/19 11:08 MW [id number] 05/14/19 11:11 MW 05/14/19 11:08 Wound Center Nurse 2 [Procedure/Treatment] #2- R 3RD TOE -Time 11:08 -Correct Patient Yes -Correct Side, Site, Position Yes -Correct Procedure Yes -Procedure Performed Yes -Type of Procedure Debridement -Clinical Debridement Subcutaneous -Post Debridement Size (cm) - Length 0.5 -Post Debridement Size (cm) - Width 0.7 -Post Debridement Size (cm) - Depth 0.3 -Total Square Cm 0.35 -Wound/Ulcer Outcome Not Healed -Ulcer Cleansing Rinsed/ Irrigated with Saline -Foul Odor after Cleansing No -Bioengineered Tissue No -Bleeding Controlled with Pressure -Offloading No -Treatment Response Procedure Tolerated Well #1- R GREAT TOE -Time 11:08 -Correct Patient Yes -Correct Side, Site, Position Yes -Correct Procedure Yes -Procedure Performed No -Wound/Ulcer Outcome Not Healed -Ulcer Cleansing Not Cleansed -Foul Odor after Cleansing No -Bleeding Controlled with NA -Offloading No [See Physician Procedure note for Specifics] Pain Scale: 0-10 Numeric [Pain] -Is Patient Pain Free? Yes Musculoskeletal: No Muscle Wasting Neurological: Cranial nerves II-XII grossly intact Psych/Mental Status: Normal Affect Debridement Note Post-Debridement Measurements/Treatment WC - Nurse 2 - General Ulcer CM Notes Start: 05/02/19 09:40 Freq: Status: Active Protocol: Activity Type Activity Date Activity User E-Sign Co-Sign Detail Recorded Client Recorded Date Recorded By Document 05/02/19 10:23 MW [id number] 05/02/19 10:49 MW Document 05/09/19 10:08 MW [id number] 05/09/19 10:22 MW Document 05/14/19 11:08 MW [id number] 05/14/19 11:11 MW 05/02/19 05/09/19 05/14/19 10:23 10:08 11:08 Wound Center Nurse 2 #2- R 3RD TOE -Time 10:24 10:09 11:08 -Correct Patient Yes Yes Yes -Correct Side, Site, Position Yes Yes Yes -Correct Procedure Yes Yes Yes -Procedure Performed Yes Yes Yes -Type of Procedure Debridement Debridement Debridement -Clinical Debridement Subcutaneous Subcutaneous Subcutaneous -Post Debridement Size (cm) - Length 1.0 0.5 0.5 -Post Debridement Size (cm) - Width 1.0 0.5 0.7 -Post Debridement Size (cm) - Depth 0.3 0.3 0.3 -Total Square Cm 1.00 0.25 0.35 -Wound/Ulcer Outcome Not Healed Not Healed Not Healed -Ulcer Cleansing Rinsed/ Rinsed/ Rinsed/ Irrigated with Irrigated with Irrigated with Saline Saline Saline -Foul Odor after Cleansing No No No -Bioengineered Tissue No No No -Bleeding Controlled with Pressure Pressure Pressure -Offloading No No No -Treatment Response Procedure Procedure Procedure Tolerated Well Tolerated Well Tolerated Well #1- R GREAT TOE -Time 10:25 10:17 11:08 -Correct Patient Yes Yes Yes -Correct Side, Site, Position Yes Yes Yes -Correct Procedure Yes Yes Yes -Procedure Performed Yes No No -Type of Procedure Debridement -Clinical Debridement Subcutaneous -Post Debridement Size (cm) - Length 7.0 7.0 -Post Debridement Size (cm) - Width 4.0 3.5 -Post Debridement Size (cm) - Depth 0.1 0.1 -Total Square Cm 28.00 24.50 -Wound/Ulcer Outcome Not Healed Not Healed -Ulcer Cleansing Rinsed/ Not Cleansed Not Cleansed Irrigated with Saline -Foul Odor after Cleansing No No No -Bioengineered Tissue No No -Bleeding Controlled with Pressure NA NA -Offloading No No No -Treatment Response Procedure Procedure Tolerated Well Tolerated Well Pain Scale: 0-10 Numeric Is Patient Pain Free? Yes Yes Yes Wound debrided: Right third toe Type of Debridement: Excisional debridement Anesthesia Used: 4% Lidocaine Solution Depth: Down to and including healthy tissue, in the subcutaneous layer Percentage of wound debrided: 100 Instrument Used: 3mm curette Tissue Removed: Slough and devitalized tissue Severity: Fat Layer Exposed - Probes to bone Amount of bleeding with debridement: Mild Bleeding Controlled with: Pressure Patient tolerated procedure well Assessment/Plan Clinical Impression(s) from Imaging Studies Foot X-Ray 05/02/19 11:24 IMPRESSION: 1. Suspected soft tissue erosion/ulcer of the distal first toe. No obvious aixa bony destruction. Recommend correlation with MRI or bone scan, if clinically appropriate, for evaluation of osteomyelitis. 2. Third toe soft tissue swelling without obvious bony destruction. Electronically Signed: Mark Deluna MD ([place]) at 17:15 EDT , Service support , Toe X-Ray 05/02/19 11:34 IMPRESSION: 1. Suspected soft tissue erosion/ulcer of the distal first toe (phalanx may be exposed). No obvious aixa bony destruction. Recommend correlation with MRI or bone scan, if clinically appropriate, for evaluation of osteomyelitis. 2. Third toe soft tissue swelling without obvious bony destruction. Electronically Signed: Mark Deluna MD ([place]) at 17:17 EDT , Service support , Active Problems Gangrene of toe of right foot (Chronic) Skin ulcer of third toe of left foot with fat layer exposed (Chronic) Peripheral arterial disease (Chronic) Assessment: Same as above. Plan: Debridement done as documented above. Procedure was well-tolerated. Continue Providone Iodine to right great toe and Santyl to right third toe. Continue antibiotics as prescribed by infectious disease. Increased protein intake also recommended. Possible application of epi-fix next week. His que stions were answered and he was advised to call with any further questions or concerns. Follow-up in a week. This note was generated with [employer] dictation software. It may contain incorrect words, spelling, and punctuation that were not noted in checking the note before signing.
== END 2019-05-19 23:59 ==
LOC: WC 10:30
PROVIDERS: Family Provider Surgery Vascular Surgery; PCP Surgery Vascular Surgery; Referring Provider Nurse Practitioner; Visit Provider Nurse Practitioner
DX: L97.522 Non-pressure chronic ulcer of other part of left foot with fat layer exposed (principal); T14.8XXA Other injury of unspecified body region, initial encounter; I70.269 Atherosclerosis of native arteries of extremities with gangrene, unspecified extremity; I25.10 Atherosclerotic heart disease of native coronary artery without angina pectoris; I10 Essential (primary) hypertension; I25.2 Old myocardial infarction; Z95.5 Presence of coronary angioplasty implant and graft; Z87.891 Personal history of nicotine dependence; Z79.01 Long term (current) use of anticoagulants; I48.91 Unspecified atrial fibrillation
CPT/HCPCS: 11042; 11045; 73630; 73660; 87070; 87075; 87077; 87186; 87205; 99203; G0463

== ENCOUNTER 2019-05-28 09:30 | Outpatient (RCR) | payer MEDICARE, OTHER, SELFPAY ==
[2019-05-20 01:14] VITALS: BP 143/69; PULSE 72; RESP 18; TEMP 36.6; BMI 21.8
[2019-05-22 10:32] VITALS: BP 134/64; PULSE 70; RESP 18; TEMP 36.6; BMI 21.8
--- NOTE | 2019-05-22 18:59 | PN.PCM_ITS ---
(1) Atherosclerosis of lower extremity with gangrene Status: Acute Current Visit: Yes Code(s): I70.269 - Atherosclerosis of [place] arteries of extremities with gangrene, unspecified extremity (2) Gangrene of toe of right foot Status: Chronic Current Visit: Yes Code(s): I96 - Gangrene, not elsewhere classified (3) Skin ulcer of third toe of left foot with fat layer exposed Status: Chronic Current Visit: Yes Code(s): L97.522 - Non-pressure chronic ulcer of other part of left foot with fat layer exposed (4) Peripheral arterial disease Status: Chronic Current Visit: No Code(s): I73.9 - Peripheral vascular disease, unspecified Type of Wound Date of Service: 05/22/19 Chief Complaint: Follow-up on some black toes History of Wound: 78-year-old black male from the [facility] noticed a couple weeks ago that his toes were discoloring has history of coronary artery disease and had an DC with 4 stents is on Eliquis for his uncontrolled A. fib hypertension and coronary artery disease he is also had an attempted stent to the right leg unsuccessful by a vascular surgeon on April 16 he does have a follow-up appointment with him next week. Patient had vascular studies done with the vascular surgeon no results to us yet we will attempt to get copies. Patient states he has good feeling in his legs and feet and can move all toes. Relatives that are nurses felt that the vascular surgeon would only be interested in his reasons why he is doing this but not with the wounds on his feet and that is how they got referred to the wound center. Progress of Wound: No new concerns at this time. Initial application of epi fix done today. - Physical Exam Vital Signs Temp Pulse Resp BP 97.8 F 70 18 134/64 H 05/22/19 10:32 05/22/19 10:32 05/22/19 10:32 05/22/19 10:32 General: Alert, Oriented x3, Cooperative, No apparent distress HEENT: Atraumatic, Normocephalic Oral: Moist Mucosa Neck: Supple Lungs: Normal air movement Extremities: No cyanosis Skin: Ulcer/ Wound Wound Measurements and Assessment WC - Nurse 1 - General Ulcer Measurement Start: 05/22/19 10:32 Freq: Status: Active Protocol: Activity Type Activity Date Activity User E-Sign Co-Sign Detail Recorded Client Recorded Date Recorded By Document 05/22/19 10:32 DL [id number] 05/22/19 10:42 DL 05/22/19 10:32 Wound Center Nurse 1 [Ulcer Assessment] #2- R 3RD TOE -Current Size (cm) - Length 0.5 -Current Size (cm) - Width 0.7 -Current Size (cm) - Depth 0.2 -Total Square Cm 0.35 -Photo Taken No -Exudate Amt Small -Exudate Type Serosanguineous -Wound Margin Thickened -Granulation Amt None Present (0 %) -Necrosis Amt Small (1-33%) -Necrotic Tissue Type Adherent Slough -Structure Exposed Bone -Texture (Amie-wound Skin Appearance) Localized Edema -Moisture (Amie-wound Skin Appearance Maceration ) -Color (Amie-wound Skin Appearance) Erythema -Temperature (Amie-wound Skin No Abnormality Appearance) (Pt Warm) -Tenderness on Palpation (Amie-wound No Skin Appearance) -Ulcer Cleansing Wound Cleanser -Foul Odor after Cleansing No -Anesthetic Used 5% Lidocaine Gel #1- R GREAT TOE -Current Size (cm) - Length 7 -Current Size (cm) - Width 8 -Current Size (cm) - Depth 0.1 -Total Square Cm 56 -Photo Taken No -Exudate Amt Small -Exudate Type Serosanguineous -Wound Margin Thickened -Granulation Amt None Present (0 %) -Necrosis Amt Large (67-100%) -Necrotic Tissue Type Eschar -Structure Exposed N/A -Texture (Amie-wound Skin Appearance) Induration, Scarring -Moisture (Amie-wound Skin Appearance Dry/Scaly ) -Color (Amie-wound Skin Appearance) Ecchymosis, Hemosiderin Staining -Temperature (Amie-wound Skin No Abnormality Appearance) (Pt Warm) -Tenderness on Palpation (Amie-wound No Skin Appearance) -Ulcer Cleansing Wound Cleanser -Foul Odor after Cleansing No WC - Nurse 2 - General Ulcer CM Notes Start: 05/22/19 10:32 Freq: Status: Active Protocol: Activity Type Activity Date Activity User E-Sign Co-Sign Detail Recorded Client Recorded Date Recorded By Document 05/22/19 11:06 MW [id number] 05/22/19 11:15 MW 05/22/19 11:06 Wound Center Nurse 2 [Procedure/Treatment] #2- R 3RD TOE -Time 11:07 -Correct Patient Yes -Correct Side, Site, Position Yes -Correct Procedure Yes -Procedure Performed Yes -Type of Procedure Debridement -Clinical Debridement Subcutaneous -Post Debridement Size (cm) - Length 0.4 -Post Debridement Size (cm) - Width 0.5 -Post Debridement Size (cm) - Depth 0.2 -Total Square Cm 0.20 -Wound/Ulcer Outcome Not Healed -Ulcer Cleansing Rinsed/ Irrigated with Saline -Foul Odor after Cleansing No -Bioengineered Tissue Yes -Type of bioengineered Tissue EPIFIX -Expiration Date 08/20/23 -Product Lot Number [id number] -Percent Used 100 -Saline Lot Number [id number] -Bleeding Controlled with Pressure -Offloading No -Treatment Response Procedure Tolerated Well #1- R GREAT TOE -Time 11:07 -Correct Patient Yes -Correct Side, Site, Position Yes -Correct Procedure Yes -Procedure Performed No -Wound/Ulcer Outcome Not Healed -Ulcer Cleansing Rinsed/ Irrigated with Saline -Foul Odor after Cleansing No -Bioengineered Tissue No -Bleeding Controlled with Pressure -Offloading No -Treatment Response Procedure Tolerated Well [See Physician Procedure note for Specifics] Pain Scale: 0-10 Numeric [Pain] -Is Patient Pain Free? Yes Musculoskeletal: No Muscle Wasting Neurological: Cranial nerves II-XII grossly intact Psych/Mental Status: Normal Affect Debridement Note Post-Debridement Measurements/Treatment WC - Nurse 2 - General Ulcer CM Notes Start: 05/22/19 10:32 Freq: Status: Active Protocol: Activity Type Activity Date Activity User E-Sign Co-Sign Detail Recorded Client Recorded Date Recorded By Document 05/22/19 11:06 MW [id number] 05/22/19 11:15 MW 05/22/19 11:06 Wound Center Nurse 2 #2- R 3RD TOE -Time 11:07 -Correct Patient Yes -Correct Side, Site, Position Yes -Correct Procedure Yes -Procedure Performed Yes -Type of Procedure Debridement -Clinical Debridement Subcutaneous -Post Debridement Size (cm) - Length 0.4 -Post Debridement Size (cm) - Width 0.5 -Post Debridement Size (cm) - Depth 0.2 -Total Square Cm 0.20 -Wound/Ulcer Outcome Not Healed -Ulcer Cleansing Rinsed/ Irrigated with Saline -Foul Odor after Cleansing No -Bioengineered Tissue Yes -Type of bioengineered Tissue EPIFIX -Expiration Date 08/20/23 -Product Lot Number [id number] -Percent Used 100 -Saline Lot Number [id number] -Bleeding Controlled with Pressure -Offloading No -Treatment Response Procedure Tolerated Well #1- R GREAT TOE -Time 11:07 -Correct Patient Yes -Correct Side, Site, Position Yes -Correct Procedure Yes -Procedure Performed No -Wound/Ulcer Outcome Not Healed -Ulcer Cleansing Rinsed/ Irrigated with Saline -Foul Odor after Cleansing No -Bioengineered Tissue No -Bleeding Controlled with Pressure -Offloading No -Treatment Response Procedure Tolerated Well Pain Scale: 0-10 Numeric Is Patient Pain Free? Yes Wound debrided: Right third toe Type of Debridement: Excisional debridement Anesthesia Used: 4% Lidocaine Solution Depth: Down to and including healthy tissue, in the subcutaneous layer Percentage of wound debrided: 100 Instrument Used: - - 1mm Severity: Fat Layer Exposed Amount of bleeding with debridement: Mild Bleeding Controlled with: Pressure Patient tolerated procedure well Assessment/Plan Active Problems Gangrene of toe of right foot (Chronic) Atherosclerosis of lower extremity with gangrene (Acute) Skin ulcer of third toe of left foot with fat layer exposed (Chronic) Assessment: Same as above. Plan: Debridement done as documented above. Procedure was well-tolerated. Continue Providone Iodine to right great toe. No application of epi fix done today using 100% of product. Moistened with saline Adaptic touch over top. Living place for a week. Increased protein intake also recommended. His questions were answered and he was advised to call with any further questions or concerns. Follow-up in a week. This note was generated with [employer] dictation software. It may contain incorrect words, spelling, and punctuation that were not noted in checking the note before signing.
[2019-05-28 09:45] VITALS: BP 164/85; PULSE 76; RESP 16; TEMP 36.1; BMI 21.8
--- NOTE | 2019-05-28 10:36 | PN.PCM_ITS ---
(1) Atherosclerosis of lower extremity with gangrene Status: Acute Current Visit: Yes Code(s): I70.269 - Atherosclerosis of [place] arteries of extremities with gangrene, unspecified extremity (2) Gangrene of toe of right foot Status: Chronic Current Visit: Yes Code(s): I96 - Gangrene, not elsewhere classified (3) Skin ulcer of third toe of left foot with fat layer exposed Status: Chronic Current Visit: Yes Code(s): L97.522 - Non-pressure chronic ulcer of other part of left foot with fat layer exposed (4) Peripheral arterial disease Status: Chronic Current Visit: No Code(s): I73.9 - Peripheral vascular disease, unspecified Type of Wound Date of Service: 05/28/19 Chief Complaint: Follow-up on some black toes History of Wound: 78-year-old black male from the [facility] noticed a couple weeks ago that his toes were discoloring has history of coronary artery disease and had an IN with 4 stents is on Eliquis for his uncontrolled A. fib hypertension and coronary artery disease he is also had an attempted stent to the right leg unsuccessful by a vascular surgeon on April 16 he does have a follow-up appointment with him next week. Patient had vascular studies done with the vascular surgeon no results to us yet we will attempt to get copies. Patient states he has good feeling in his legs and feet and can move all toes. Relatives that are nurses felt that the vascular surgeon would only be interested in his reasons why he is doing this but not with the wounds on his feet and that is how they got referred to the wound center. Progress of Wound: No new concerns at this time. Has had 1 application of Epifix so far. - Physical Exam Vital Signs Temp Pulse Resp BP 96.9 F L 76 16 164/85 H 05/28/19 09:45 05/28/19 09:45 05/28/19 09:45 05/28/19 09:45 General: Alert, Oriented x3, Cooperative, No apparent distress HEENT: Atraumatic, Normocephalic Oral: Moist Mucosa Neck: Supple Lungs: Normal air movement Extremities: No cyanosis Skin: Ulcer/ Wound Wound Measurements and Assessment WC - Nurse 1 - General Ulcer Measurement Start: 05/22/19 10:32 Freq: Status: Active Protocol: Activity Type Activity Date Activity User E-Sign Co-Sign Detail Recorded Client Recorded Date Recorded By Document 05/28/19 09:45 [facility] [id number] 05/28/19 09:55 [facility] 05/28/19 09:45 Wound Center Nurse 1 [Ulcer Assessment] #2- R 3RD TOE -Combined with other wound No -Current Size (cm) - Length 0.9 -Current Size (cm) - Width 0.9 -Current Size (cm) - Depth 0.1 -Total Square Cm 0.81 -Photo Taken No -Epithelialization None Present -Tunneling No -Undermining/Tunneling No -Circular Undermining No -Exudate Amt Small -Exudate Type Serosanguineous -Wound Margin Flat & Intact -Granulation Amt None Present (0 %) -Slough/Fibrin Yes -Necrosis Amt Small (1-33%) -Necrotic Tissue Type Adherent Slough -Texture (Amie-wound Skin Appearance) Assessed, Scarring -Moisture (Amie-wound Skin Appearance Assessed,Not ) Assessed -Color (Amie-wound Skin Appearance) Assessed,Palor -Temperature (Amie-wound Skin No Abnormality Appearance) (Pt Warm) -Tenderness on Palpation (Amie-wound No Skin Appearance) -Ulcer Cleansing soap and water -Foul Odor after Cleansing No -Anesthetic Used 5% Lidocaine Gel #1- R GREAT TOE -Combined with other wound No -Current Size (cm) - Length 5.1 -Current Size (cm) - Width 2.9 -Current Size (cm) - Depth 0.2 -Total Square Cm 14.79 -Photo Taken No -Epithelialization None Present -Tunneling No -Undermining/Tunneling No -Circular Undermining No -Exudate Amt Small -Exudate Type Serosanguineous -Wound Margin Distinct, Outline Attached -Granulation Amt None Present (0 %) -Slough/Fibrin Yes -Necrosis Amt Large (67-100%) -Necrotic Tissue Type Eschar -Texture (Amie-wound Skin Appearance) Assessed -Moisture (Amie-wound Skin Appearance Assessed,Dry/ ) Scaly -Color (Amie-wound Skin Appearance) Assessed -Temperature (Amie-wound Skin No Abnormality Appearance) (Pt Warm) -Tenderness on Palpation (Amie-wound Yes Skin Appearance) -Ulcer Cleansing soap and water -Foul Odor after Cleansing No -Anesthetic Used 5% Lidocaine Gel WC - Nurse 2 - General Ulcer CM Notes Start: 05/22/19 10:32 Freq: Status: Active Protocol: Activity Type Activity Date Activity User E-Sign Co-Sign Detail Recorded Client Recorded Date Recorded By Document 05/28/19 10:05 MW [id number] 05/28/19 10:22 MW 05/28/19 10:05 Wound Center Nurse 2 [Procedure/Treatment] #2- R 3RD TOE -Time 10:06 -Correct Patient Yes -Correct Side, Site, Position Yes -Correct Procedure Yes -Procedure Performed Yes -Type of Procedure Debridement -Clinical Debridement Subcutaneous -Post Debridement Size (cm) - Length 0.4 -Post Debridement Size (cm) - Width 0.5 -Post Debridement Size (cm) - Depth 0.2 -Total Square Cm 0.20 -Wound/Ulcer Outcome Not Healed -Ulcer Cleansing Rinsed/ Irrigated with Saline -Foul Odor after Cleansing No -Bioengineered Tissue Yes -Type of bioengineered Tissue EPIFIX -Expiration Date 08/20/23 -Product Lot Number [id number] -Percent Used 100 -Saline Lot Number [id number] -Bleeding Controlled with Pressure -Offloading No -Treatment Response Procedure Tolerated Well #1- R GREAT TOE -Time 10:06 -Correct Patient Yes -Correct Side, Site, Position Yes -Correct Procedure Yes -Procedure Performed Yes -Type of Procedure Debridement -Clinical Debridement Subcutaneous -Post Debridement Size (cm) - Length 0.5 -Post Debridement Size (cm) - Width 2.0 -Post Debridement Size (cm) - Depth 0.2 -Total Square Cm 1.00 -Wound/Ulcer Outcome Not Healed -Ulcer Cleansing Rinsed/ Irrigated with Saline -Foul Odor after Cleansing No -Bioengineered Tissue No -Bleeding Controlled with Pressure -Offloading No -Treatment Response Procedure Tolerated Well [See Physician Procedure note for Specifics] Pain Scale: 0-10 Numeric [Pain] -Is Patient Pain Free? Yes Musculoskeletal: No Muscle Wasting Neurological: Cranial nerves II-XII grossly intact Psych/Mental Status: Normal Affect Debridement Note Post-Debridement Measurements/Treatment WC - Nurse 2 - General Ulcer CM Notes Start: 05/22/19 10:32 Freq: Status: Active Protocol: Activity Type Activity Date Activity User E-Sign Co-Sign Detail Recorded Client Recorded Date Recorded By Document 05/22/19 11:06 MW [id number] 05/22/19 11:15 MW Document 05/28/19 10:05 MW [id number] 05/28/19 10:22 MW 05/22/19 05/28/19 11:06 10:05 Wound Center Nurse 2 #2- R 3RD TOE -Time 11:07 10:06 -Correct Patient Yes Yes -Correct Side, Site, Position Yes Yes -Correct Procedure Yes Yes -Procedure Performed Yes Yes -Type of Procedure Debridement Debridement -Clinical Debridement Subcutaneous Subcutaneous -Post Debridement Size (cm) - Length 0.4 0.4 -Post Debridement Size (cm) - Width 0.5 0.5 -Post Debridement Size (cm) - Depth 0.2 0.2 -Total Square Cm 0.20 0.20 -Wound/Ulcer Outcome Not Healed Not Healed -Ulcer Cleansing Rinsed/ Rinsed/ Irrigated with Irrigated with Saline Saline -Foul Odor after Cleansing No No -Bioengineered Tissue Yes Yes -Type of bioengineered Tissue EPIFIX EPIFIX -Expiration Date 08/20/23 08/20/23 -Product Lot Number [id number] -Percent Used 100 100 -Saline Lot Number [id number] -Bleeding Controlled with Pressure Pressure -Offloading No No -Treatment Response Procedure Procedure Tolerated Well Tolerated Well #1- R GREAT TOE -Time 11:07 10:06 -Correct Patient Yes Yes -Correct Side, Site, Position Yes Yes -Correct Procedure Yes Yes -Procedure Performed No Yes -Type of Procedure Debridement -Clinical Debridement Subcutaneous -Post Debridement Size (cm) - Length 0.5 -Post Debridement Size (cm) - Width 2.0 -Post Debridement Size (cm) - Depth 0.2 -Total Square Cm 1.00 -Wound/Ulcer Outcome Not Healed Not Healed -Ulcer Cleansing Rinsed/ Rinsed/ Irrigated with Irrigated with Saline Saline -Foul Odor after Cleansing No No -Bioengineered Tissue No No -Bleeding Controlled with Pressure Pressure -Offloading No No -Treatment Response Procedure Procedure Tolerated Well Tolerated Well Pain Scale: 0-10 Numeric Is Patient Pain Free? Yes Yes Wound debrided: Right third toe Type of Debridement: Excisional debridement Anesthesia Used: 4% Lidocaine Solution Depth: Down to and including healthy tissue, in the subcutaneous layer Percentage of wound debrided: 100 Instrument Used: - - 1mm Tissue Removed: devitalized tissue Severity: Fat Layer Exposed Amount of bleeding with debridement: Mild Bleeding Controlled with: Pressure Patient tolerated procedure well - Additional Wound Wound debrided: Right great toe Type of Debridement: Excisional debridement Anesthesia Used: 4% Lidocaine Solution Depth: Down to and including healthy tissue, in the subcutaneous layer Percentage of wound debrided: 100 Instrument Used: 3mm curette Tissue Removed: Slough and devitalized tissue Severity: Fat Layer Exposed Amount of bleeding with debridement: Mild Bleeding Controlled with: Pressure Patient tolerated procedure: Patient tolerated procedure well Assessment/Plan Active Problems Gangrene of toe of right foot (Chronic) Atherosclerosis of lower extremity with gangrene (Acute) Skin ulcer of third toe of left foot with fat layer exposed (Chronic) Assessment: Same as above. Plan: Debridement done as documented above. Procedure was well-tolerated. Continue Providone Iodine to right great toe. Fibracol to the viable areas. change daily. 2nd application of epi fix done today using 100% of product. Moistened with saline Adaptic touch over top. Leave in place for 10 days. After 10 days, apply fibochol daily until healed. Increased protein intake also recommended. His questions were answered and he was advised to call with any further questions or concerns. Discharged from the wound clinic. Travelling back to the [facility]. Will be seen by his network intern over there. This note was generated with [email or web address] dictation software. It may contain incorrect words, spelling, and punctuation that were not noted in checking the note before signing.
== END 2019-06-19 23:59 ==
LOC: WC 09:30
PROVIDERS: Family Provider Surgery Vascular Surgery; PCP Surgery Vascular Surgery; Referring Provider Nurse Practitioner; Visit Provider Nurse Practitioner
DX: I70.261 Atherosclerosis of native arteries of extremities with gangrene, right leg (principal); L97.512 Non-pressure chronic ulcer of other part of right foot with fat layer exposed; I25.10 Atherosclerotic heart disease of native coronary artery without angina pectoris; I25.2 Old myocardial infarction; Z95.5 Presence of coronary angioplasty implant and graft; Z79.01 Long term (current) use of anticoagulants; I48.91 Unspecified atrial fibrillation; I10 Essential (primary) hypertension
CPT/HCPCS: 11042; 15275; Q4186

== ENCOUNTER → 2019-11-04 10:06 | Outpatient (CLI) | payer MEDICARE, OTHER, SELFPAY ==
[2019-11-04 12:26] LABS: Allen Test POS; Base Excess 0 mmol/L (-2 to +2); Bicarbonate 23.9 mmol/L (22-26); Blood Gas Specimen Type ART; O2 Delivery Device Room Air; PO2 73 mmHG (75-100); SITE L Radial; SO2 95 % (95-99); Time Given 1055; Total Carbon Dioxide 25 mmol/L; pCO2 35.1 mmHg (35-45); pH 7.44 (7.35-7.45)
--- NOTE | 2019-11-04 14:44 | PFTCOMP_ITS ---
COMPLETE PULMONARY FUNCTION TEST INTERPRETATION Brief HPI: Patient is a 79 year old Black male, currently under the care of Jannie Yañez, who presents to [facility] for complete pulmonary function tests secondary to diagnosis of preop testing. Respiratory therapist reports good effort and reproducible results. Interpretation: Forced expiration spirometry shows a mild large airways obstructive ventilatory defect with an FEV1 of 91% predicted. There is no bronchodilator response t ested. Spirograms are of good quality and plateau slowly, indicating slowly emptying areas of the lungs. The respiratory flow volume loop shows decreased expiratory flow rates at all lung volumes consistent with airway obstruction. Lung volumes by body plethysmography show an elevated total lung capacity at 8.11 L, 123% predicted. All other lung volumes are increased symmetrically. Diffusion capacity by carbon monoxide is normal at 70% predicted. The airway resistance is normal. No previous pulmonary function tests were available for review. Impression: Mild large airways obstructive ventilatory defect, but bronchodilators not tested
== END ==
PROVIDERS: PCP Surgery Vascular Surgery; Referring Provider Nurse Practitioner Primary Care; Visit Provider Nurse Practitioner Primary Care
DX: Z01.818 Encounter for other preprocedural examination (principal); I73.9 Peripheral vascular disease, unspecified; I48.3 Typical atrial flutter; I25.10 Atherosclerotic heart disease of native coronary artery without angina pectoris; Z79.01 Long term (current) use of anticoagulants
CPT/HCPCS: 36600; 82803; 94010; 94726; 94729; J7040; A4216

== ENCOUNTER 2019-11-05 10:04 | Outpatient (RCR) | payer MEDICARE, OTHER, SELFPAY ==
[2019-11-05 10:21] VITALS: BP 130/63; PULSE 79; RESP 20; TEMP 36.9; BMI 22.4
--- NOTE | 2019-11-05 11:08 | PN.PCM_ITS ---
(1) Gangrene of right foot Status: Acute Current Visit: Yes Code(s): I96 - Gangrene, not elsewhere classified (2) Atherosclerosis of lower extremity with gangrene Status: Acute Current Visit: Yes Code(s): I70.269 - Atherosclerosis of [place] arteries of extremities with gangrene, unspecified extremity (3) Coronary artery disease Status: Acute Current Visit: Yes Code(s): I25.10 - Atherosclerotic heart disease of [place] coronary artery without angina pectoris (4) Gangrene of toe of right foot Status: Chronic Current Visit: Yes Code(s): I96 - Gangrene, not elsewhere classified Type of Wound Date of Service: 11/05/19 Chief Complaint: Gangrenous right foot and toes History of Wound: 78-year-old black male from the [facility] noticed a couple weeks ago that his toes were discoloring has history of coronary artery disease and had an IA with 4 stents is on Eliquis for his uncontrolled A. fib hypertension and coronary artery disease he is also had an attempted stent to the right leg unsuccessful by a vascular surgeon on April 16 2019. Patient had vascular studies done with the vascular surgeon no results to us yet we will attempt to get copies. Patient has a appointment with Dr. Warren Holcomb vascular surgeon out of [facility] on November 25. He also has an appointment with the heart center for a stress test next week. The leg is starting to give him a lot of pain and he is unable to bear weight he is in a wheelchair bound. He states he has been followed up twice a week by a manufacturing millwright in the [facility]. Progress of Wound: Tried to explain to patient there is nothing we can do here at the wound center there is no real wounds he needs a vascular surgeon for an amputation or whatever they decide to do they insist on coming here to have it rechecked every week but all they can do is put povidone iodine on the skin to dry and to keep it wrapped and clean and elevated or whatever position makes him comfortable. Patient has follow-up appointments with both of vascular and the heart which he needs to keep for his bed vascular PAD condition - Physical Exam Vital Signs Temp Pulse Resp BP 98.5 F 79 20 H 130/63 H 11/05/19 10:21 11/05/19 10:21 11/05/19 10:21 11/05/19 10:21 General: Oriented x3, Cooperative, Well developed HEENT: Atraumatic, PERRLA Oral: Moist Mucosa Neck: Supple, No JVD Lungs: Clear to auscultation, Normal air movement Cardiovascular: Regular rate, Regular Rhythm Abdomen: Bowel Sounds Present, Soft, Non Tender, No Hepato-splenomegaly Extremities: No clubbing, No edema Wound Measurements and Assessment WC - Nurse 1 - General Ulcer Measurement Start: 11/05/19 10:19 Freq: Status: Active Protocol: Activity Type Activity Date Activity User E-Sign Co-Sign Detail Recorded Client Recorded Date Recorded By Document 11/05/19 10:21 DL [id number] 11/05/19 10:32 DL 11/05/19 10:21 Wound Center Nurse 1 [Ulcer Assessment] #3 R Foot -Current Size (cm) - Length 25 -Current Size (cm) - Width 18 -Current Size (cm) - Depth 0.7 -Total Square Cm 450 -Photo Taken Yes -Classification - Richard Grading ( Grade 5 Diabetic Ulcer) -Exudate Amt Small -Exudate Type Serosanguineous -Wound Margin Thickened -Granulation Amt None Present (0 %) -Slough/Fibrin Yes -Necrosis Amt Large (67-100%) -Necrotic Tissue Type Eschar -Structure Exposed N/A -Texture (Amie-wound Skin Appearance) Localized Edema -Moisture (Amie-wound Skin Appearance Dry/Scaly ) -Color (Amie-wound Skin Appearance) Cyanosis, Ecchymosis -Temperature (Amie-wound Skin No Abnormality Appearance) (Pt Warm) -Tenderness on Palpation (Amie-wound Yes Skin Appearance) -Foul Odor after Cleansing Yes [Edema Assessment] -Right Calf (cm) 38 -Right Ankle (cm) 24 - Nurse 2 - General Ulcer CM Notes Start: 11/05/19 10:19 Freq: Status: Active Protocol: Activity Type Activity Date Activity User E-Sign Co-Sign Detail Recorded Client Recorded Date Recorded By Document 11/05/19 10:58 MW [id number] 11/05/19 11:05 MW 11/05/19 10:58 Wound Center Nurse 2 [Procedure/Treatment] #3 R Foot -Time 10:58 -Correct Patient Yes -Correct Side, Site, Position Yes -Correct Procedure Yes -Procedure Performed No -Wound/Ulcer Outcome Not Healed -Ulcer Cleansing Not Cleansed -Foul Odor after Cleansing No -Bleeding Controlled with NA -Offloading No -Treatment Response Procedure Tolerated Well [See Physician Procedure note for Specifics] Pain Scale: 0-10 Numeric [Pain] -Is Patient Pain Free? Yes Musculoskeletal: No Tenderness to Palpation of Joints or Extremities Lymphatic: No Cervical, Supraclavicular, or Inguinal Adenopathy Neurological: Cranial nerves II-XII grossly intact, Neuro grossly intact Psych/Mental Status: Normal Affect, Appropriate Debridement Note Post-Debridement Measurements/Treatment WC - Nurse 2 - General Ulcer CM Notes Start: 11/05/19 10:19 Freq: Status: Active Protocol: Activity Type Activity Date Activity User E-Sign Co-Sign Detail Recorded Client Recorded Date Recorded By Document 11/05/19 10:58 MW [id number] 11/05/19 11:05 MW 11/05/19 10:58 Wound Center Nurse 2 #3 R Foot -Time 10:58 -Correct Patient Yes -Correct Side, Site, Position Yes -Correct Procedure Yes -Procedure Performed No -Wound/Ulcer Outcome Not Healed -Ulcer Cleansing Not Cleansed -Foul Odor after Cleansing No -Bleeding Controlled with NA -Offloading No -Treatment Response Procedure Tolerated Well Pain Scale: 0-10 Numeric Is Patient Pain Free? Yes No debridement was completed today Assessment/Plan Active Problems Gangrene of toe of right foot (Chronic) Atherosclerosis of lower extremity with gangrene (Acute) Coronary artery disease (Acute) Gangrene of right foot (Acute) Assessment: Same as above. Plan: Continue povidone iodine to all blackened areas to dry keep wrapped in gauze and Richy offload as much as possible. Keep appointments with vascular surgery and with heart doctor. Follow-up as needed
== END 2019-11-18 23:59 ==
LOC: WC 10:04
PROVIDERS: PCP Surgery Vascular Surgery; Visit Provider Nurse Practitioner
DX: I70.261 Atherosclerosis of native arteries of extremities with gangrene, right leg (principal); L97.519 Non-pressure chronic ulcer of other part of right foot with unspecified severity; I25.10 Atherosclerotic heart disease of native coronary artery without angina pectoris; I25.2 Old myocardial infarction; I48.91 Unspecified atrial fibrillation; Z79.01 Long term (current) use of anticoagulants; I10 Essential (primary) hypertension; Z99.3 Dependence on wheelchair
CPT/HCPCS: 99213; G0463